=== PATIENT | female | born 1990 | race Caucasian/White ===

== ENCOUNTER 2017-06-21 16:02 | Emergency (ER) | payer BC, MEDICAID ==
[2017-06-21 16:39] VITALS: BMI 21.9
--- NOTE | 2017-06-21 16:46 | ED PDOC ---
Arrival/HPI - General Historian: Patient - General Chief Complaint: Female Genitourinary Time Seen by Provider: 06/21/17 16:28 - History of Present Illness Narrative History of Present Illness (Text): 06/21/17 16:43 26-year-old female Presents today with concerns for vaginal bleeding. Patient states she had her LMP on June 10 and started bleeding again today. Patient states she had unprotected sex last week and then took a Plan B. Patient presents today with left-sided pelvic pain and vaginal bleeding. She also is complaining of bilateral leg pain. Patient states she stopped her control pills a week ago just prior to having her unprotected sex. She denies chest pain or shortness of breath. She denies numbness weakness or tingling in the lower extremities. She denies pain at present time. Complaining of nausea no vomiting. No other complaints (Azoia,Kellen T) Past Medical History - Provider Review Nursing Documentation Reviewed: Yes - Travel History Have you recently traveled outside [place] w/in the past 3 mons?: No - Infectious Disease Hx of Infectious Diseases: None - Tetanus Immunization Tetanus Immunization: Unknown - Cardiac Hx Cardiac Disorders: No Hx Pacemaker: No - Pulmonary Hx Respiratory Disorders: No - Neurological Hx Neurological Disorder: No Hx Paralysis: No - HEENT Hx HEENT Disorder: No - Renal Hx Renal Disorder: No - Endocrine/Metabolic Hx Endocrine Disorders: Yes Hx Systemic Lupus Erythematosus: Yes - Hematological/Oncological Hx Blood Transfusions: No Hx Blood Transfusion Reaction: No - Musculoskeletal/Rheumatological Hx Musculoskeletal Disorders: Yes (L KNEE/ANKLE SPRAIN CURRENTLY) - Psychiatric Hx Emotional Abuse: No Hx Physical Abuse: No Hx Substance Use: No - Anesthesia Hx Anesthesia: Yes Hx Anesthesia Reactions: No - Suicidal Assessment Feels Threatened In Home Enviroment: No Family/Social History - Physician Review Nursing Documentation Reviewed: Yes Family/Social History: Unknown Family HX Smoking Status: Never Smoked Hx Alcohol Use: No Hx Substance Use: No Allergies/Home Meds Allergies/Adverse Reactions: Allergies cefaclor [From Ceclor] Allergy (Verified 06/21/17 16:13) RASH Penicillins Allergy (Verified 06/21/17 16:13) RASH Home Medications: Home Meds Medication Instructions Recorded Confirmed No Known Home Med 06/21/17 06/21/17 Review of Systems - Review of Systems Constitutional: absent: Fatigue, Fevers Respiratory: absent: SOB, Cough Cardiovascular: absent: Chest Pain, Palpitations Gastrointestinal: Abdominal Pain, Nausea. absent: Constipation, Diarrhea, Vomiting Genitourinary Female: Vaginal Bleeding. absent: Dysuria, Frequency, Hematuria, Vaginal Discharge Musculoskeletal: absent: Arthralgias, Back Pain, Neck Pain Skin: absent: Rash, Pruritis Neurological: absent: Headache, Dizziness Psychiatric: absent: Anxiety, Depression Physical Exam Vital Signs Reviewed: Yes Temperature: Afebrile Blood Pressure: Normal Pulse: Regular Respiratory Rate: Normal Appearance: Positive for: Well-Appearing, Non-Toxic, Comfortable Pain Distress: None Mental Status: Positive for: Alert and Oriented X 3 - Systems Exam Head: Present: Atraumatic Mouth: Present: Moist Mucous Membranes Neck: Present: Normal Range of Motion Respiratory/Chest: Present: Clear to Auscultation, Good Air Exchange. No: Respiratory Distress, Accessory Muscle Use Cardiovascular: Present: Regular Rate and Rhythm, Normal S1, S2. No: Murmurs Abdomen: Present: Normal Bowel Sounds. No: Tenderness, Distention, Peritoneal Signs, Rebound, Guarding Genitourinary/Pelvic Exam: Present: Normal External Genitalia, Vaginal Bleeding , Cervical os Closed, Other (chaparoned by Bria stubbs). No: Vaginal Discharge , Vaginal Lesions, Adenexal Tenderness, Adenexal Mass, Cervical Motion Tendernes , Odor Upper Extremity: Present: Normal Inspection Lower Extremity: Present: Normal Inspection, Normal ROM. No: CALF TENDERNESS, Tenderness, Swelling Neurological: Present: GCS=15 Skin: Present: Warm, Dry, Normal Color. No: Rashes Psychiatric: Present: Alert, Oriented x 3 Vital Signs Temp Pulse Resp BP Pulse Ox 06/21/17 20:04 98.6 F 80 16 113/74 98 06/21/17 16:16 98.2 F 76 19 90/62 L 100 Medical Decision Making ED Course and Treatment: I was available for consultation during PA evaluation. The chart was reviewed by me, and I agree with disposition. The documented history was done by the physician sheet roller operator. The documented physical exam was done by the physician sheet roller operator. The documented procedures were done by the physician sheet roller operator. ( Dorian Hand) 06/21/17 16:48 Patient is nontoxic well appearing in no distress. stable vital signs. CBC: wnl CMP: wnl Beta hCG: <2.39 Urinalysis:+ blood Ultrasound transvaginal: FINDINGS: UTERUS: Measures 8.1 x 3.9 x 4.2 cm. Retroverted. ENDOMETRIUM: Measures 3 mm in diameter. CERVIX: No cervical abnormality identified. RIGHT OVARY: Measures 3.9 x 2.7 x 4.1 cm. Blood flow is demonstrated. 1.2 x 1.4 x 1.0 cm follicle/cyst. LEFT OVARY: Measures 3.6 x 2.1 x 3.9 cm. Blood flow is demonstrated. FREE FLUID: Small pelvic free fluid. OTHER FINDINGS: None. IMPRESSION: 1.4 cm right ovarian follicle/cyst. Small pelvic free fluid. venous duplex of the bilateral lower extremities: No DVT verbal report from orthophotography technician Discussed all the results the patient. advised f/u with the worm farmer within the next 2 days. advised immediate return if symptoms worsen,persist or if new symptoms develop. Impression: Vaginal bleeding, Leg pain Tylenol every 4 hours as needed for pain Increase fluids Followup with the INGOT BUGGY OPERATOR within the next 2 days Return immediately if symptoms worsen persist or if new symptoms develop: High fevers, heavy bleeding, severe abdominal pain, vomiting, diarrhea, dizziness or weakness or any other concerning symptoms develop. (Kellen Doherty) - Lab Interpretations Lab Results: 06/21/17 16:40 06/21/17 16:40 Lab Results 06/21/17 16:40: Sodium 139, Potassium 3.6, Chloride 102, Carbon Dioxide 24, Anion Gap 17, BUN 12, Creatinine 0.7, Est GFR ( Amer) > 60, Est GFR (Non- Af Amer) > 60, Random Glucose 84, Calcium 8.9, Total Bilirubin 0.5, AST 27, ALT 25, Alkaline Phosphatase 47, Total Protein 7.3, Albumin 4.3, Globulin 2.9, Albumin/Globulin Ratio 1.5 06/21/17 16:40: WBC 6.3, RBC 4.93, Hgb 14.3, Hct 42.4, MCV 86.0, MCH 29.0, MCHC 33.7, RDW 12.6, Plt Count 237, MPV 8.4, Gran % 32.8 L, Lymph % (Auto) 59.5 H, T[place] % (Auto) 5.5, Eos % (Auto) 1.6, Baso % (Auto) 0.6, Gran # 2.07, Lymph # 3.8 H, Tama # 0.4, Eos # 0.1, Baso # 0.04 06/21/17 16:40: Beta HCG, Quant < 2.39 06/21/17 16:40: Urine Color Yellow, Urine Appearance Clear, Urine pH 6.5, Ur Specific [place] 1.025, Urine Protein Trace H, Urine Glucose (UA) Negative, Urine Ketones Negative, Urine Blood Large H, Urine Nitrate Negative, Urine Bilirubin Negative, Urine Urobilinogen 0.2, Ur Leukocyte Esterase Negative, Urine RBC 2 - 5, Urine WBC 0 - 2, Ur Epithelial Cells 6 - 8, Urine Bacteria Many , Urine Other Fiber - RAD Interpretation Radiology Orders: 06/21/17 16:39 DUPLEX LOWER EXTRM VEIN BILAT [US] Stat 06/21/17 16:40 TRANSVAGINAL [US] Stat Disposition/Present on Arrival - Present on Arrival Any Indicators Present on Arrival: No History of DVT/PE: No History of Uncontrolled Diabetes: No Urinary Catheter: No History of Decub. Ulcer: No History Surgical Site Infection Following: None - Disposition Have Diagnosis and Disposition been Completed?: Yes Disposition Time: 19:08 Patient Plan: Discharge - Disposition Diagnosis: Vaginal bleeding, Leg pain Disposition: HOME/ ROUTINE Patient Problems: Current Active Problems Problem Status Onset Leg pain Acute Vaginal bleeding Acute Condition: GOOD Additional Instructions: Tylenol every 4 hours as needed for pain Increase fluids Followup with the INGOT BUGGY OPERATOR within the next 2 days Return immediately if symptoms worsen persist or if new symptoms develop: High fevers, heavy bleeding, severe abdominal pain, vomiting, diarrhea, dizziness or weakness or any other concerning symptoms develop. Referrals: Gale Kurtz MD [Primary Care Provider] - Follow up with primary Sandip Gallego MD [Staff Provider] - Follow up with primary Forms: [employer] ([place])
[2017-06-21 17:06] LABS: BASO # 0.04 K/mm3 (0.0-2.0); BASO % 0.6 % (0.0-3.0); EOS # 0.1 (0.0-0.7); EOS % 1.6 % (1.5-5.0); GRAN # 2.07 (1.4-6.5); GRAN % 32.8 % (50.0-68.0); HEMOGLOBIN 14.3 g/dL (12.0-16.0); LYMPH # 3.8 (1.2-3.4); LYMPH % 59.5 % (22.0-35.0); MEAN CORPUSCULAR HGB CONC 33.7 g/dl (31.0-37.0); MEAN PLATELET VOLUME 8.4 fl (7.0-11.0); MONO # 0.4 (0.1-0.6); MONO % 5.5 % (1.0-6.0); PLATELET COUNT 237 10^3/uL (120.0-450.0); RBC 4.93 10^6/uL (3.5-6.1); RED CELL DISTRIBUTION WIDTH 12.6 % (11.5-14.5); WHITE BLOOD COUNT 6.3 10^3/ul (4.5-11.0)
[2017-06-21 17:09] LABS: ALB/GLOB RATIO 1.5 (1.1-1.8); ALBUMIN 4.3 g/dL (3.0-4.8); ALT/SGPT 25 U/L (7-56); AST/SGOT 27 U/L (15-39); BLOOD UREA NITROGEN 12 mg/dL (7-21); CALCIUM 8.9 mg/dL (8.4-10.5); GFR AFRICAN-AMERICAN > 60; GFR NON-AFRICAN AMERICAN > 60
[2017-06-21 17:11] LABS: PH,URINE 6.5 (4.7-8.0); URINE BILIRUBIN NEGATIVE (NEGATIVE); URINE BLOOD LARGE (NEGATIVE); URINE GLUCOSE (UA) NEGATIVE (NEGATIVE); URINE LEUKOCYTE ESTERASE NEGATIVE Leu/uL (NEGATIVE); URINE NITRATE NEGATIVE (NEGATIVE); URINE PROTEIN TRACE mg/dL (<30 mg/dL); URINE UROBILINOGEN 0.2 E.U./dL (<1 E.U./dL)
[2017-06-21 17:13] LABS: URINE COLOR YELLOW (YELLOW)
[2017-06-21 17:14] LABS: URINE APPEARANCE CLEAR (CLEAR)
[2017-06-21 17:33] LABS: URINE BACTERIA MANY (NEG); URINE WBC 0 - 2 /hpf (0-6)
--- NOTE | 2017-06-21 18:27 | US ---
HISTORY: Leg pain and swelling. Evaluate for DVT PHYSICIAN(S): Singh Pereyra MD. TECHNIQUE: Duplex sonography and color-flow Doppler with graded compression were used to evaluate the deep venous systems of both lower extremities. FINDINGS: The visualized deep venous systems of both lower extremities are sonographically normal and compressible. Normal wave forms and augmentation are seen. There is no sonographic evidence for deep venous thrombosis in the visualized segments of both lower extremities. IMPRESSION: No sonographic evidence for deep venous thrombosis in the visualized segments of both lower extremities.
--- NOTE | 2017-06-21 18:39 | US ---
HISTORY: bleeding COMPARISON: None available. TECHNIQUE: Transvaginal pelvic ultrasound FINDINGS: UTERUS: Measures 8.1 x 3.9 x 4.2 cm. Retroverted. ENDOMETRIUM: Measures 3 mm in diameter. CERVIX: No cervical abnormality identified. RIGHT OVARY: Measures 3.9 x 2.7 x 4.1 cm. Blood flow is demonstrated. 1.2 x 1.4 x 1.0 cm follicle/cyst. LEFT OVARY: Measures 3.6 x 2.1 x 3.9 cm. Blood flow is demonstrated. FREE FLUID: Small pelvic free fluid. OTHER FINDINGS: None. IMPRESSION: 1.4 cm right ovarian follicle/cyst. Small pelvic free fluid.
[2017-06-21 20:04] VITALS: PULSE 80; TEMP 98.6
[2017-06-21 20:26] VITALS: BP 145/90; RESP 18; O2SAT 97
== END 2017-06-21 20:27 | disposition home or self-care (01) ==
LOC: ED 16:02
DX: N93.9 Abnormal uterine and vaginal bleeding, unspecified (principal); M79.605 Pain in left leg; M79.604 Pain in right leg

== ENCOUNTER 2019-03-22 20:51 | Emergency (ER) | payer OTHER ==
[2019-03-22 20:51] VITALS: BMI 22.6
--- NOTE | 2019-03-22 21:27 | ED PDOC ---
Arrival/HPI - General Historian: Patient - History of Present Illness Narrative History of Present Illness (Text): 03/22/19 21:27 28 y/o female, no significant pmh, allergic to cefaclor and penicillin, last TDAP under 6 years ago, presented to the ED complaining of a laceration to the left ankle. patient states she sustained the laceration from a broken soap dish while she was showering 2 hours ago. Patient noted some bleeding from the site, which stopped on its own. Patient denies any weakness/numbness/tingling in the extremity, decreased range of motion, or any other complaints. Time/Duration: 1-3 hours Symptom Course: Unchanged Activities at Onset: Light Context: Standing, Home <Gordon Connors - Last Filed: 03/22/19 23:16> <Lonnie Vargas - Last Filed: 03/23/19 06:43> - General Chief Complaint: Lower Extremity Problem/Injury Time Seen by Provider: 03/22/19 21:26 Past Medical History - Provider Review Nursing Documentation Reviewed: Yes - Infectious Disease Hx of Infectious Diseases: None - Tetanus Immunization Tetanus Immunization: Unknown - Cardiac Hx Cardiac Disorders: No Hx Pacemaker: No - Pulmonary Hx Respiratory Disorders: No - Neurological Hx Neurological Disorder: No Hx Paralysis: No - HEENT Hx HEENT Disorder: No - Renal Hx Renal Disorder: No - Endocrine/Metabolic Hx Endocrine Disorders: Yes Hx Systemic Lupus Erythematosus: Yes - Hematological/Oncological Hx Blood Transfusions: No Hx Blood Transfusion Reaction: No - Musculoskeletal/Rheumatological Hx Musculoskeletal Disorders: Yes (L KNEE/ANKLE SPRAIN CURRENTLY) - Psychiatric Hx Emotional Abuse: No Hx Physical Abuse: No Hx Substance Use: Yes - Anesthesia Hx Anesthesia: Yes Hx Anesthesia Reactions: No - Suicidal Assessment Feels Threatened In Home Enviroment: No <Gordon Connors - Last Filed: 03/22/19 23:16> Family/Social History - Physician Review Nursing Documentation Reviewed: Yes Family/Social History: Unknown Family HX Smoking Status: Current Some Days Smoker Hx Alcohol Use: No Hx Substance Use: Yes Substance used: marijuana <Gordon Connors - Last Filed: 03/22/19 23:16> Allergies/Home Meds <Gordon Connors - Last Filed: 03/22/19 23:16> <Lonnie Vargas - Last Filed: 03/23/19 06:43> Allergies/Adverse Reactions: Allergies cefaclor [From Ceclor] Allergy (Verified 03/22/19 21:22) RASH Penicillins Allergy (Verified 03/22/19 21:22) RASH Review of Systems - Physician Review All systems were reviewed & negative as marked: Yes - Review of Systems Constitutional: absent: Fatigue, Fevers Eyes: absent: Vision Changes ENT: absent: Hearing Changes Respiratory: absent: SOB, Cough Cardiovascular: absent: Chest Pain Gastrointestinal: absent: Abdominal Pain, Diarrhea, Nausea, Vomiting Skin: Laceration. absent: Rash, Pruritis, Skin Lesions Neurological: absent: Headache, Dizziness Psychiatric: absent: Anxiety, Depression, Suicidal Ideation <Gordon Connors Q - Last Filed: 03/22/19 23:16> Physical Exam Vital Signs Reviewed: Yes Temperature: Afebrile Blood Pressure: Normal Pulse: Regular Respiratory Rate: Normal Appearance: Positive for: Well-Appearing, Non-Toxic, Comfortable Pain Distress: Mild Mental Status: Positive for: Alert and Oriented X 3 - Systems Exam Head: Present: Atraumatic, Normocephalic Pupils: Present: PERRL Extroacular Muscles: Present: EOMI Conjunctiva: Present: Normal Mouth: Present: Moist Mucous Membranes Neck: Present: Normal Range of Motion Respiratory/Chest: Present: Clear to Auscultation, Good Air Exchange. No: Respiratory Distress, Accessory Muscle Use Cardiovascular: Present: Regular Rate and Rhythm, Normal S1, S2. No: Murmurs Abdomen: No: Tenderness, Distention, Peritoneal Signs Back: Present: Normal Inspection Upper Extremity: Present: Normal Inspection. No: Cyanosis, Edema Lower Extremity: Present: NORMAL PULSES, Normal ROM, Neurovascularly Intact, Capillary Refill < 2 s, Other (Lt. medial ankle: 2cm, c-shaped laceration to the medial aspect of left ankle, no visible or palpated foreign body noted, no active bleeding, FROM without limitation, sensation intact motor 5/5, negative mikey and marquez signs, +DPPT pulses. ). No: Edema, Cyanosis, Tenderness, Swelling, Erythema, Deformity, Temperature Abnormalties Neurological: Present: GCS=15, CN II-XII Intact, Speech Normal Skin: Present: Warm, Dry, Normal Color. No: Rashes Psychiatric: Present: Alert, Oriented x 3, Normal Insight, Normal Concentration <Gordon Connors Q - Last Filed: 03/22/19 23:16> Vital Signs Temp Pulse Resp BP Pulse Ox 03/22/19 23:02 98.2 F 73 20 106/61 100 <Lonnie Vargas - Last Filed: 03/23/19 06:43> Medical Decision Making ED Course and Treatment: Impression: 28 year old female presents s/p sustaining a laceration to the left ankle 2 hours prior to arrival. Differential Diagnosis included but are not limited to: laceration Plan: -- XR Left Ankle, r/o foreign body -- Laceration Repair -- Reassess and disposition Progress Notes: PROCEDURE: LACERATION REPAIR Performed by the emergency provider Location: Medial aspect, left ankle Length: 2 cm Description: C-shaped, clean wound edges, no foreign bodies Distal CMS: Normal. No deficits. Neurovascularly intact. Anesthesia: Lidocaine 1% Preparation: The wound was cleaned with NS 1000cc and Betadyne. The area was prepped and draped in the usual sterile fashion. Exploration: The wound was explored and no foreign bodies were found. Procedure: The wound was closed with 4-0 nylon. There was {good / appropriate / adequate / loose} approximation. In total, 3 were used. Post-Procedure: Good closure and hemostasis. The patient tolerated the procedure well and there were no complications. CSM remains intact. Post procedure dressing applied. 03/22/19 22:58 -Urine hcg is negative -Discharge home with clindamycin, motrin, keep it dry and clean for 2 days, sutures removed by day 10, see your own pmd within 2 days, return to the ER for any new or worsening signs or symptoms. <Gordon Connors - Last Filed: 03/22/19 23:16> - RAD Interpretation Radiology Orders: 03/22/19 21:36 ANKLE LEFT 3 VIEWS ROUTINE [RAD] Stat <Lonnie Vargas - Last Filed: 03/23/19 06:43> - PA / NAILHEAD SETTER / Resident Statement MD/DO has reviewed & agrees with the documentation as recorded. - Scribe Statement The provider has reviewed the documentation as recorded by the Nohemiibjose angel Saha Provider Scribe Attestation: All medical record entries made by the Scribe were at my direction and personally dictated by me. I have reviewed the chart and agree that the record accurately reflects my personal performance of the history, physical exam, medical decision making, and the department course for this patient. I have also personally directed, reviewed, and agree with the discharge instructions and disposition. <Gordon Connors - Last Filed: 03/22/19 23:16> - PA / NAILHEAD SETTER / Resident Statement / has reviewed & agrees with the documentation as recorded. / has examined the patient and agrees with the treatment plan. <Lonnie Vargas - Last Filed: 03/23/19 06:43> Disposition/Present on Arrival - Present on Arrival Any Indicators Present on Arrival: No History of DVT/PE: No History of Uncontrolled Diabetes: No Urinary Catheter: No History of Decub. Ulcer: No History Surgical Site Infection Following: None - Disposition Have Diagnosis and Disposition been Completed?: Yes Disposition Time: 21:49 Patient Plan: Discharge <Gordon Connors - Last Filed: 03/22/19 23:16> <Lonnie Vargas - Last Filed: 03/23/19 06:43> - Disposition Diagnosis: Laceration of ankle Disposition: HOME/ ROUTINE Condition: GOOD Additional Instructions: -Discharge home with clindamycin, motrin, keep it dry and clean for 2 days, sutures removed by day 10, see your own pmd within 2 days, return to the ER for any new or worsening signs or symptoms. Prescriptions: Clindamycin [Cleocin] 300 mg PO TID #21 cap Ibuprofen [Motrin] 600 mg PO QID PRN #30 tab PRN Reason: Other Referrals: [facility] [place] [facility] [place] - Follow up with primary Forms: [employer] ([place]), WORK NOTE
[2019-03-22 23:03] VITALS: BP 106/61; PULSE 73; RESP 20; TEMP 98.2; O2SAT 100
--- NOTE | 2019-03-23 10:19 | RAD ---
Date of service: 03/22/2019 PROCEDURE: Left Ankle Radiographs. HISTORY: lt. ankle laceration COMPARISON: None available. TECHNIQUE: 3 views obtained. FINDINGS: BONES: Normal. No fracture. JOINTS: Normal. No osteoarthritis. Ankle mortise maintained. Talar dome intact SOFT TISSUES: Normal. OTHER FINDINGS: None. IMPRESSION: Normal left ankle radiographs.
== END 2019-03-23 01:00 | disposition home or self-care (01) ==
LOC: ED 20:51
DX: S91.012A Laceration without foreign body, left ankle, initial encounter (principal); W45.8XXA Other foreign body or object entering through skin, initial encounter; Y93.E1 Activity, personal bathing and showering; Y92.002 Bathroom of unspecified non-institutional (private) residence as the place of occurrence of the external cause; M32.9 Systemic lupus erythematosus, unspecified